=== PATIENT | male | born 1945 | race Caucasian/White ===

== ENCOUNTER → 2019-07-30 | Outpatient (CLI) | payer MEDICARE ==
--- NOTE | 2019-07-30 16:52 | CT ---
EXAMINATION TYPE: CT abdomen pelvis w con DATE OF EXAM: 07/30/2019 COMPARISON: Prior CT 08/16/2013 HISTORY: Pelvic and Left flank pain. CT DLP: 417.5 mGycm Automated exposure control for dose reduction was used. TECHNIQUE: Helical acquisition of images from the lung bases through the pelvis have been completed. CONTRAST: Performed with Oral Contrast and with IV Contrast, patient injected with 100 mL of Isovue 300. FINDINGS: LUNG BASES: No significant abnormality is appreciated. Posterior diaphragmatic hernia on the right co ntains fat AORTA: No significant abnormality is appreciated. LIVER/GB: No significant abnormality is appreciated, gallbladder is absent surgically, common bile du ct dilation likely due to postcholecystectomy change. PANCREAS: No significant abnormality is seen. SPLEEN: No significant abnormality is seen. ADRENALS: No significant abnormality is seen. KIDNEYS: No significant interval change is seen, small upper pole cortical cysts present. REPRODUCTIVE ORGANS: Metallic artifacts within the prostate likely represent prostate seeds. BOWEL: An axial image 37 transverse colon shows a nonspecific wall thickening. 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 FREE AIR: No Free Air visible. ASCITES: None visible. PELVIC ADENOPATHY: None visualized. RETROPERITONEAL ADENOPATHY: No Retroperitoneal Adenopathy visible. URINARY BLADDER: Urine filled bladder is present. OSSEOUS STRUCTURES: There is degenerative disc changes as well as scoliotic curvature within the lum bar spine. IMPRESSION: NONSPECIFIC COLONIC WALL THICKENING IS QUESTIONED, CORRELATE FOR POSSIBLE COLITIS, FOLLOW-UP INDIC ATED. ADDITIONAL FINDINGS ABOVE.
== END | disposition home or self-care (01) ==
LOC: RADCTMAIN 14:07
PROVIDERS: ATTEND Family Medicine
DX: K63.89 Other specified diseases of intestine (principal); N28.1 Cyst of kidney, acquired; C61 Malignant neoplasm of prostate; Z92.3 Personal history of irradiation
CPT/HCPCS: 82565; 84520; 74177; 36415; Q9967

== ENCOUNTER 2021-11-02 11:51 | Day surgery (SDC) | payer MEDICARE ==
[~2021-11-02 11:51] MED LIST: SODIUM CHLORIDE 0.9% 1,000 ML IV SCH
[2021-11-02 12:48] VITALS: BP 130/86; PULSE 82; RESP 16; TEMP 98.2
--- NOTE | 2021-11-02 18:12 | P.EPPROC ---
- EP Procedure Note Electrophysiology Procedure Note: Diagnosis Recurrent presyncope Twelve-lead EKG Sinus rhythm normal WI narrow QRS normal ST segments No delta waves Normal QT interval Tilt table test per protocol Baseline blood pressure 125/75 mmHg, Baseline heart rate 74 beats a minute Patient was tilted upright at an angle of 70 per protocol No change in heart rate and blood pressure He was laid supine at the end of the procedure Impression normal heart rate and blood pressure response to upright tilting Normal 12-lead EKG
== END 2021-11-02 15:31 | disposition home or self-care (01) ==
LOC: CATHEP 11:51
PROVIDERS: ATTEND Internal Medicine Clinical Cardiac Electrophysiology
DX: R55 Syncope and collapse (principal); Z98.890 Other specified postprocedural states; K21.9 Gastro-esophageal reflux disease without esophagitis; M19.90 Unspecified osteoarthritis, unspecified site; H91.90 Unspecified hearing loss, unspecified ear; Z20.822 Contact with and (suspected) exposure to COVID-19; R01.1 Cardiac murmur, unspecified; I10 Essential (primary) hypertension; J30.1 Allergic rhinitis due to pollen; Z85.828 Personal history of other malignant neoplasm of skin; Z88.4 Allergy status to anesthetic agent; H93.19 Tinnitus, unspecified ear; Z79.899 Other long term (current) drug therapy; Z88.0 Allergy status to penicillin
CPT/HCPCS: 87635; 93660

== ENCOUNTER → 2021-11-02 | Outpatient (CLI) | payer MEDICARE ==
--- NOTE | 2021-11-03 03:26 | MR ---
EXAMINATION TYPE: MR brain and iac wo/w con DATE OF EXAM: 11/02/2021 COMPARISON: None HISTORY: Hearing loss CONTRAST: Standard multiplanar, multisequence MRI departmental protocol images were obtained without contrast a nd with 7 mL intravenous Gadavist gadolinium contrast. There is cerebral cortical atrophy. There is no mass effect or midline shift. No sign of intracranial hemorrhage. Diffusion images show no sign of an acute infarct. Corpus callosum is intact. Sella turc ica is intact. No evidence of orbital mass. On the T2 and FLAIR images there are scattered multiple foci of increased signal at the garcia-white ma tter junction of both renal hemispheres. These are somewhat peripheral and likely related to microvas cular ischemia. Largest measures up to 8 mm. Total number is approximately 30. The brainstem is intac t. No evidence of cerebellar mass. No evidence of posterior fossa mass. The internal auditory canals appear normal. No sign of cerebello pontine angle mass. Acoustic nerve and vestibular nerve appear normal. No pathologic enhancement. The re is normal enhancement of the venous sinuses. No evidence of mastoiditis. IMPRESSION: No focal posterior fossa abnormality. Cerebral atrophy. White matter signal changes suggestive of microvascular ischemia. No cortical infar ct. Demyelinating disease not excluded.
== END | disposition home or self-care (01) ==
LOC: RADMRIMAIN 18:19
PROVIDERS: ATTEND Otolaryngology
DX: G31.9 Degenerative disease of nervous system, unspecified (principal)
CPT/HCPCS: 70553; A9585

== ENCOUNTER → 2021-11-16 | Outpatient (CLI) | payer MEDICARE ==
--- NOTE | 2021-11-19 07:01 | US ---
EXAMINATION TYPE: US arterial LE single level DATE OF EXAM: 11/16/2021 2:08 PM CLINICAL HISTORY: G62.9 POLYNEUROPATHY, UNSPECIFIED,I99.9. 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 Restless l eg syndrome. Neuropathy bilateral feet. History of hypertension. Doppler Waveforms: Right: Multiphasic Left: Multiphasic Pulse Volume Recording: Pressure Gradients: Ankle-Brachial Indices: Right: 1.21 Left: 1.28 Toe Brachial Indices: Right: 0.57 Left: 0.71 IMPRESSION: Slightly diminished right-sided TBI consistent with mild peripheral arterial disease at this level.
== END | disposition home or self-care (01) ==
LOC: RADUSWWP 13:34
PROVIDERS: ATTEND Physician Assistant
DX: G62.9 Polyneuropathy, unspecified (principal); I99.9 Unspecified disorder of circulatory system
CPT/HCPCS: 82607; 93922